=== PATIENT | male | born 1965 | race Asian ===

== ENCOUNTER 2021-06-13 14:36 | Outpatient (CLI) | payer BC | END 2021-06-13 14:37 | disposition home or self-care (01) | LOC: BICRAD 14:36 | PROVIDERS: ATTEND Specialist | DX: M25.552 Pain in left hip (principal) ==

== ENCOUNTER 2023-09-27 07:49 | Outpatient (CLI) | payer BC | END 2023-09-27 07:50 | disposition home or self-care (01) | LOC: SCSMRI 07:49 | PROVIDERS: ATTEND Otolaryngology | DX: H90.3 Sensorineural hearing loss, bilateral (principal) | CPT/HCPCS: 70553; 82565 ==